=== PATIENT | female | born 1990 | race Caucasian/White ===

== ENCOUNTER 2017-06-30 20:20 | Inpatient (IN) | payer BC ==
[~2017-06-30] VITALS: Ht 165.1 cm; Wt 87.7 kg
[~2017-06-30 20:20] MED LIST: BCPILLS PO
--- NOTE | 2017-06-30 20:45 | EMERGENCY ROOM VISIT NOTE ---
History Report prepared by Timoteo: Ophelia Garcia Under the Supervision of: Dr. Javon Kyle M.D. First contact with patient: 20:35 Chief Complaint: VOMITING Stated Complaint: nausea and vomitting Nursing Triage Summary: Vomiting starting at 5pm tonight. History of Present Illness The patient is a 26 year old female who presents to the Emergency Room with complaints of sudden vomiting beginning 4 hours prior to arrival. The patient states that she was vomiting every 5-10 minutes. The patient also complains of shortness of breath and shakiness. She denies having chest pain, fevers, headaches, and diarrhea. She also reports that starting a month ago, her hands will randomly tense up and she will be unable to move them. The patient also states that she has had a recent loss of appetite and that she can go 4 days without eating. She reports that she fell today. The patient denies any recent trauma or chance of . Source of History: patient, family, spouse/significant other Onset: 4 hours prior to arrival Position: other (global) Quality: other (vomiting) Timing: other (sudden) Associated Symptoms: + SOB, No fevers, No headache, No chest pain, No diarrhea Review of Systems See HPI for pertinent positives & negatives. A total of 10 systems reviewed and were otherwise negative. Past Medical & Surgical Medical Problems: (1) No active medical problems Old medical records were attempted to be reviewed but there are no old records at this hospital. Nurse's notes were reviewed and I agree with. Denies any significant past medical history. Family History No pertinent family history stated. Social History Smoking Status: Never Smoker Alcohol Use: occasionally Drug Use: none Occupation Status: [employer] student Current/Historical Medications No Active Prescriptions or Reported Meds Allergies Coded Allergies: Penicillins (Verified Allergy, Unknown, unknown, 07/23/15) Physical Exam Vital Signs Date Time Temp Pulse Resp B/P (MAP) Pulse Ox O2 Delivery O2 Flow Rate FiO2 06/30/17 22:03 113 18 142/94 98 Room Air 06/30/17 20:30 100 06/30/17 20:24 36.9 113 30 135/92 99 Room Air Physical Exam General: Well developed well nourished young female mildly ill appearing and mildly shaky with no respiratory distress, breathing comfortably on room air. Normal speech HEENT: Normal cephalic atraumatic. Pupils are equal round and reactive to light. Extraocular movements are intact. Oropharynx is pink with moist mucous membranes. No swelling of the mouth lips or tongue. Neck: Supple with a midline trachea. No meningeal signs or stiffness, no JVD or bruits. No Stridor. Chest: Clear to auscultation bilaterally. No wheezes or rhonchi. No increased work of breathing. Heart: regular rate and rhythm. Abdomen: Soft nontender, nondistended without rebound guarding or rigidity. Extremities: No cyanosis clubbing or edema. No calf tenderness or assymetry. Contractors of hands bilaterally. Spine/Back. Non tender to palpation. No CVA tenderness Skin: Good turgor without rashes. Neurologic exam: Cranial nerves two through 12 are intact. Motor and sensation are intact and symmetrical throughout. Medical Decision & Procedures ER Provider Diagnostic Interpretation: X-ray results as stated below per interpretation by me and the radiologist: CHEST ONE VIEW PORTABLE CLINICAL HISTORY: 26 years-old Female presenting with CHEST PAIN. TECHNIQUE: Portable upright AP view of the chest was obtained. COMPARISON: None. FINDINGS: Cardiomediastinal silhouette normal. Lungs and pleural spaces clear. Osseous structures normal. Upper abdomen normal. IMPRESSION: 1. No acute cardiopulmonary disease. Electronically signed by: Benjamin Cleaning M.D. 06/30/2017 10:08 PM Dictated Date/Time: 06/30/2017 10:07 PM Laboratory Results 06/30/17 21:00 Red Blood Count 4.61, Mean Corpuscular Volume 86.6, Mean Corpuscular Hemoglobin 32.3, Mean Corpuscular Hemoglobin Concent 37.3, Mean Platelet Volume 8.6, Neutrophils (%) (Auto) 88.7, Lymphocytes (%) (Auto) 7.3, Monocytes (%) (Auto) 3.4, Eosinophils (%) (Auto) 0.1, Basophils (%) (Auto) 0.2, Neutrophils # (Auto) 15.71, Lymphocytes # (Auto) 1.30, Monocytes # (Auto) 0.60, Eosinophils # (Auto) 0.02, Basophils # (Auto) 0.03 06/30/17 21:00 Test 06/30/17 21:00 06/30/17 22:30 White Blood Count 17.72 K/uL (4.8-10.8) Red Blood Count 4.61 M/uL (4.2-5.4) Hemoglobin 14.9 g/dL (12.0-16.0) Hematocrit 39.9 % (37-47) Mean Corpuscular Volume 86.6 fL (80-100) Mean Corpuscular Hemoglobin 32.3 pg (25-34) Mean Corpuscular Hemoglobin Concent 37.3 g/dl (32-36) Platelet Count 240 K/uL (130-400) Mean Platelet Volume 8.6 fL (7.4-10.4) Neutrophils (%) (Auto) 88.7 % Lymphocytes (%) (Auto) 7.3 % Monocytes (%) (Auto) 3.4 % Eosinophils (%) (Auto) 0.1 % Basophils (%) (Auto) 0.2 % Neutrophils # (Auto) 15.71 K/uL (1.4-6.5) Lymphocytes # (Auto) 1.30 K/uL (1.2-3.4) Monocytes # (Auto) 0.60 K/uL (0.11-0.59) Eosinophils # (Auto) 0.02 K/uL (0-0.5) Basophils # (Auto) 0.03 K/uL (0-0.2) RDW Standard Deviation 41.7 fL (36.4-46.3) RDW Coefficient of Variation 13.3 % (11.5-14.5) Immature Granulocyte % (Auto) 0.3 % Immature Granulocyte # (Auto) 0.06 K/uL (0.00-0.02) Anion Gap 10.0 mmol/L (3-11) Est Creatinine Clear Calc Drug Dose 129.7 ml/min Estimated GFR () 134.9 Estimated GFR (Non- 116.4 BUN/Creatinine Ratio 7.2 (10-20) Calcium Level 8.4 mg/dl (8.5-10.1) Magnesium Level 0.9 mg/dl (1.8-2.4) Total Bilirubin 0.9 mg/dl (0.2-1) Direct Bilirubin 0.2 mg/dl (0-0.2) Aspartate Amino Transf (AST/SGOT) 36 U/L (15-37) Alanine Aminotransferase (ALT/SGPT) 34 U/L (12-78) Alkaline Phosphatase 129 U/L (45-117) Total Protein 7.7 gm/dl (6.4-8.2) Albumin 4.0 gm/dl (3.4-5.0) Lipase 59 U/L (73-393) Human Chorionic Gonadotropin, Qual NEG (NEG) Laboratory studies as stated above per my review. Medications Administered Medications (Trade) Dose Ordered Sig/Dalton Route Start Time Stop Time Status Last Admin Dose Admin Sodium Chloride 1,000 ml @ 999 mls/hr Q1H1M STAT IV 06/30/17 20:47 06/30/17 21:47 DC 06/30/17 21:05 999 MLS/HR Sodium Chloride 1,000 ml @ 200 mls/hr Q5H ONCE IV 06/30/17 20:47 07/01/17 01:46 06/30/17 21:05 200 MLS/HR Ondansetron HCl (Zofran Inj) 4 mg NOW STAT IV 06/30/17 20:47 06/30/17 20:48 DC 06/30/17 21:05 4 MG Lorazepam (Ativan Inj) 1 mg NOW STAT IV 06/30/17 21:18 06/30/17 21:19 DC 06/30/17 21:25 1 MG Magnesium Sulfate (Magnesium Sulfate) 2 gm NOW STAT IV 06/30/17 21:48 06/30/17 21:49 DC 06/30/17 22:02 2 GM ECG Indication: vomiting Rate (beats per minute): 114 Rhythm: sinus tachycardia Findings: nonspecific-ST abn, no acute ischemic change, no ectopy ED Course 2034: Past medical records reviewed. The patient was evaluated in room B5, and a complete history and physical examination were performed. 2046: Ordered Zofran Inj 4 mg IV, Sodium Chloride 1,000 ml @ 200 mls/hr IV, Sodium Chloride 1,000 ml @ 999 mls/hr IV. 2117: Ordered Ativan Inj 1 mg IV. 2125: I went to check on the patient and she was hyperventilating and her hands were clamped. We had her rebreathe her oxygen, we gave her a mg of Ativan, and had her slow her breathing. The patient is starting to feel better. 2138: The patient is doing better and her parents arrived. Her boyfriend states that she drinks a lot. 2147: Ordered Magnesium Sulfate 2 gm IV. 2201: Discussed the patient's case with Dr. Penny. The patient will be evaluated for further management. 2209: Upon reevaluation, the patient is resting. I discussed the results and treatment plan with the patient. She verbalized agreement of the treatment plan. The patient will be evaluated for further management. Medical Decision Differentials include, but are not limited to; dehydration, electrolyte metabolic abnormality, infection, and arrhythmia. This patient comes in as described above. She was brought in by ambulance after having multiple episodes of vomiting. She then was hyperventilating clenched her hands down bilaterally. She had no loss of consciousness. There was no trauma. She was feeling better upon arrival but still felt tight in her hands but she looks well. IV access was established. IV fluids were ordered and blood work was ordered. She seems somewhat anxious still. When I rechecked her she became much more anxious and was hyperventilating and she became very tachycardic. We gave her 1 mg of Ativan IV and had her rebreathe her CO2 and with this her heart rate came down and she felt much better. Her electrolytes came back significant abnormal with a low magnesium of 0.9. Her EKG does not show significantly prolonged QT and has no ischemic changes. Chest x-ray is unremarkable and does not show any acute findings. Her potassium is also mildly low. Her white count is elevated at 17 however she has no abdominal tenderness and I think this is most likely a stress reaction. I talked to the patient and her boyfriend at length she apparently does drink fairly heavily and there is also concern for alcohol withdrawal potential. Given her hypomagnesemia, I do think she needs to be admitted. She denies any self-induced vomiting. I have consulted Dr. Talavera and they saw the patient in the ER and she will be admitted for IV hydration and monitoring and treatment of her electrolyte abnormalities. Medication Reconcilliation Current Medication List: was personally reviewed by me Blood Pressure Screening Patient's blood pressure: Normal blood pressure Consults Time Called: 2149 Consulting Physician: Dr. Penny-[facility] Returned Call: 2201 Discussed the patient's case. The patient will be evaluated for further management. Impression Primary Impression: Vomiting Additional Impressions: Dehydration Hypomagnesemia Hyperventilation Scribe Attestation The scribe's documentation has been prepared under my direction and personally reviewed by me in its entirety. I confirm that the note above accurately reflects all work, treatment, procedures, and medical decision making performed by me. Departure Information Dispostion Being Evaluated By Hospitalist Prescriptions No Active Prescriptions or Reported Meds Referrals No Doctor, Assigned (PCP) Patient Instructions My [facility] Problem Qualifiers
[2017-06-30] MEDS ORDERED: ONDANSETRON INJ 2 MG/ML 2 ML VIAL IV STA (20:47)
[2017-06-30] MEDS ORDERED: SODIUM CHLORIDE 0.9% 1000ML 1,000 ML IV STA ×2 (20:47→22:56)
[2017-06-30] MEDS ORDERED: SODIUM CHLORIDE 0.9% 1000ML 1,000 ML IV ONE (20:47)
[2017-06-30 21:13] LABS: BASO % 0.2 %; BASO ABS # 0.03 K/uL (0-0.2); COMPLETE YES; EOS % 0.1 %; HEMATOCRIT 39.9 % (37-47); IG% 0.3 %; LYMPH % 7.3 %; MEAN CELL VOLUME 86.6 fL (80-100); MEAN CORPUSCULAR HEMOGLOBIN 32.3 pg (25-34); MEAN CORPUSCULAR HGB CONC 37.3 g/dl (32-36); MEAN PLATELET VOLUME 8.6 fL (7.4-10.4); MONO % 3.4 %; NEUT % 88.7 %; PLATELET COUNT 240 K/uL (130-400); RED BLOOD COUNT 4.61 M/uL (4.2-5.4); WHITE BLOOD COUNT 17.72 K/uL (4.8-10.8)
[2017-06-30] MEDS ORDERED: LORAZEPAM 2 MG/ML 1 ML VIAL IV STA (21:18)
[2017-06-30] MEDS ORDERED: LORAZEPAM 2 MG/ML 1 ML VIAL ONE (21:19)
[2017-06-30 21:26] LABS: BUN/CREATININE RATIO 7.2 (10-20); CALCIUM 8.4 mg/dl (8.5-10.1); CREATININE 0.72 mg/dl (0.60-1.20); POTASSIUM 3.1 mmol/L (3.5-5.1)
[2017-06-30 21:29] LABS: PREG INTERNAL NEGATIVE QC NEG CLEAR BACKGROUND; PREG INTERNAL POSITIVE QC POS CONTROL LINE
[2017-06-30] MEDS ORDERED: MAGNESIUM SULFATE 1GM / D5W 1 GM BAG IV STA (21:48)
--- NOTE | 2017-06-30 22:00 | History and Physical ---
History & Physical Date & Time of Service: Jun 30, 2017 at 22:00 Chief Complaint: nausea and vomitting Primary Care Physician: No Doctor, Assigned History of Present Illness Source: patient Miss Rand is a 26 year old female who presented to the ER with hypertonia, abdominal pain, nausea and vomiting. Her symptoms started severely around 5pm starting with abdominal cramping, then quickly progressed to vomiting. She went to [facility] ER and she was advised to go to [facility]. Her boyfriend was driving her when on the way she suddenly had all over body numbness and feeling like her whole body was numb. She found her throat was getting tight and it was very hard to talk. She was rolling around on the floor in a cramped position for around 45 minutes due to the abdominal pain and pain in her arms from cramping and tightening up of her muscles. She has had approximately similar episodes in the last month but none as severe as this one. She does not have a PCP and has not sought medical attention for these episodes. She is a heavy alcohol drinking and currently drinks every day around 12 shots of vodka in mixed drinks in the evening to help her fall asleep. She has used alcohol as a sleep aid for approximately 5 years but has only been a heavy alcohol drinker in the last year. She has tried AA meetings previously but recently started a second job and the hours clash she she has stopped going. She has been in contact with the drug and alcohol helpline. She has an appointment set up for outpatient meeting at [place] [facility] next . She is off on vacation to [place] until then with her boyfriend. Her boyfriend also drinks alcohol but she doesn't think to excess. She tells me he is supportive of her trying to give up alcohol but they have not thought of doing an alcohol free house and her goal is to cut back currently rather than give up. She tried to give up cold turkey 6 week previously and went through withdrawals with tremors, agitation and difficulty sleeping. She went back to alcohol due to stress from her work (she quit her most stressful job last week). With the heavy alcohol drinking she has had a complete lack of appetite for the last month and has not eaten anything for the last week. It is not unusual for her to go 4 days without eating. When she does eat she does not binge. She denies having chest pain, fevers, headaches, and diarrhea. 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 Past Medical/Surgical History Alcohol use disorder Malnutrition Family History Noncontributory Social History Smoking Status: Never Smoker Smokeless Tobacco Use: No Alcohol Use: heavy (see HPI) Drug Use: none Marital Status: in relationship Housing status: lives alone (moving in with her mother soon) Occupational Status: employed Immunizations History of Influenza Vaccine: Unknown History of Tetanus Vaccine?: Yes History of Pneumococcal: No History of Hepatitis B Vaccine: Yes Multi-Drug Resistant Organisms History of MDRO: No Allergies Coded Allergies: Penicillins (Verified Allergy, Unknown, unknown, 07/23/15) Home Medications No Active Prescriptions or Reported Meds Review of Systems Constitutional: + chills, No fever Eyes: No worsening of vision ENT: No hearing loss Respiratory: No cough, No sputum, No wheezing, No shortness of breath, No dyspnea on exertion, No dyspnea at rest, No hemoptysis Cardiovascular: No chest pain Abdomen: + pain, + nausea, + vomiting, No diarrhea, No constipation, No GI bleeding Musculoskeletal: + joint pain, + muscle pain (see HPI) Genitourinary - Female: No dysuria, No urinary frequency, No urinary urgency, No urinary incontinence, No urinary retention Neurologic: + weakness, + numbness/tingling (bilateral lateral thighs, bilateral anterior shins, distally normal), No memory loss, No paralysis Psychiatric: + depression symptoms, + anxiety, + insomnia, + substance abuse ( alcohol) Hematologic / Lymphatic: No abnormal bleeding/bruising Integumentary: No rash, No itch Physical Exam Vital Signs Date Time Temp Pulse Resp B/P (MAP) Pulse Ox O2 Delivery O2 Flow Rate FiO2 06/30/17 20:30 100 06/30/17 20:24 36.9 113 30 135/92 99 Room Air General Appearance: WD/WN, + mild distress (hands cramping intermittently, appears mildly anxious) Eyes: normal inspection, PERRL, EOMI, sclerae normal, funduscopic exam normal Neck: supple, no adenopathy, no JVD, trachea midline Respiratory/Chest: chest non-tender, lungs clear, normal breath sounds, no respiratory distress, no accessory muscle use Cardiovascular: regular rate, rhythm, no edema Abdomen/GI: normal bowel sounds, soft, + tenderness (very mild left lower quadrant tenderness on deep palpation, no rebound or guarding) Back: no CVA tenderness Extremities/Musculoskelatal: no calf tenderness, normal capillary refill, no pedal edema Neurologic/Psych: spike driver II-XII nml as tested (no facial droop), alert, oriented x 3, + motor weakness ( carpopedal spasm resolving), + sensory deficit (outer thighs bilaterally) Skin: normal color, warm/dry, no rash Diagnostics Laboratory Results Results Past 24 Hours Test 06/30/17 21:00 Range/Units White Blood Count 17.72 4.8-10.8 K/uL Red Blood Count 4.61 4.2-5.4 M/uL Hemoglobin 14.9 12.0-16.0 g/dL Hematocrit 39.9 37-47 % Mean Corpuscular Volume 86.6 80-100 fL Mean Corpuscular Hemoglobin 32.3 25-34 pg Mean Corpuscular Hemoglobin Concent 37.3 32-36 g/dl Platelet Count 240 130-400 K/uL Mean Platelet Volume 8.6 7.4-10.4 fL Neutrophils (%) (Auto) 88.7 % Lymphocytes (%) (Auto) 7.3 % Monocytes (%) (Auto) 3.4 % Eosinophils (%) (Auto) 0.1 % Basophils (%) (Auto) 0.2 % Neutrophils # (Auto) 15.71 1.4-6.5 K/uL Lymphocytes # (Auto) 1.30 1.2-3.4 K/uL Monocytes # (Auto) 0.60 0.11-0.59 K/uL Eosinophils # (Auto) 0.02 0-0.5 K/uL Basophils # (Auto) 0.03 0-0.2 K/uL RDW Standard Deviation 41.7 36.4-46.3 fL RDW Coefficient of Variation 13.3 11.5-14.5 % Immature Granulocyte % (Auto) 0.3 % Immature Granulocyte # (Auto) 0.06 0.00-0.02 K/uL Sodium Level 140 136-145 mmol/L Potassium Level 3.1 3.5-5.1 mmol/L Chloride Level 102 98-107 mmol/L Carbon Dioxide Level 28 21-32 mmol/L Anion Gap 10.0 3-11 mmol/L Blood Urea Nitrogen 5 7-18 mg/dl Creatinine 0.72 0.60-1.20 mg/dl Est Creatinine Clear Calc Drug Dose 129.7 ml/min Estimated GFR () 134.9 Estimated GFR (Non- 116.4 BUN/Creatinine Ratio 7.2 10-20 Random Glucose 82 70-99 mg/dl Calcium Level 8.4 8.5-10.1 mg/dl Magnesium Level 0.9 1.8-2.4 mg/dl Total Bilirubin 0.9 0.2-1 mg/dl Direct Bilirubin 0.2 0-0.2 mg/dl Aspartate Amino Transf (AST/SGOT) 36 15-37 U/L Alanine Aminotransferase (ALT/SGPT) 34 12-78 U/L Alkaline Phosphatase 129 45-117 U/L Total Protein 7.7 6.4-8.2 gm/dl Albumin 4.0 3.4-5.0 gm/dl Lipase 59 73-393 U/L Human Chorionic Gonadotropin, Qual NEG NEG Diagnostic Radiology CHEST ONE VIEW PORTABLE CLINICAL HISTORY: 26 years-old Female presenting with CHEST PAIN. TECHNIQUE: Portable upright AP view of the chest was obtained. COMPARISON: None. FINDINGS: Cardiomediastinal silhouette normal. Lungs and pleural spaces clear. Osseous structures normal. Upper abdomen normal. IMPRESSION: 1. No acute cardiopulmonary disease. Electronically signed by: Benjamin Cleaning M.D. 06/30/2017 10:08 PM Dictated Date/Time: 06/30/2017 10:07 PM EKG Sinus tachycardia, ventricular rate: 114 bpm No previous ECGs available Impression Assessment and Plan 26 year old female with alcohol use disorder presents with abdominal pain, nausea, vomiting, hypomagnesemia and hypertonia Hypomagnesemia - replace in the ER with 2g Mg Sulphate - check level after replacement Hypokalemia - secondary to poor oral intake and vomiting loss - KCl 10 meq IV now - trend Abdominal pain, nausea, vomiting - unclear etiology -> IBS vs. constipation vs. chronic pancreatitis (from alcohol use) vs. alcohol withdrawal - normal bowel movements therefore I am not concerned about SBO. - Rx hypomagnesemia and alcohol withdrawal as below and reassess Numbness on front of her calves and side of thighs - no back pain. not in one nerve distribution - CK added to assess for rhabdomyolysis - B12 level added Tetany - resolving with magnesium - Chvostek's sign not apparent, Carpopedal spasm previously described but she is getting better ROM now after 1 g Mg Sulphate - She also described having broncho and laryngospasm which are also no longer apparent and she has no stridor or wheezing - Muscle twitching in her hands is still apparent - no papilledema seen on funduscopy - no NJ or QT prolongation on EKG - she will be placed on telemetry to monitor - calcium mildly low - plan to trend. Vit D added to labs - add phosphorus level - likely secondary to hypomagnesemia, replaced in ER with 2g Mg Sulphate IV -> will repeat Mg after this finishes. She is already feeling better after the 1st gram. Alcohol use disorder - In touch with [facility] - she plans to go there on as an outpatient next . - Discharge planning to give extra resources to the patient - needs to establish with a PCP on discharge - given she has two jobs she is likely to find it difficult to quit until she sees it as a priority - multivitamin, thiamine 250mg IV 3 days, banana bag now after thiamine level - B12 and folate Alcohol withdrawal - currently having some tremors - AWSS scores - alcohol level negative suggesting she well go through withdrawal soon - treat with gabapentin protocol and lorazepam PRN Anxiety and depression - not formally diagnosed but having issues sleeping and she generally feels she is anxious - consult psych VTE Prophylaxis - SCDs + TEDs - likely short stay, young and mobile therefore will hold off chemical anticoagulation Code - Full Disposition - admit to telemetry to monitor for arrhythmias given hypomagnesemia. can be stepped down once magnesium replete Attending Addendum: I have physically seen and examined this patient, have supervised the medical residents activities, and agree with the H&P as noted above with the following exceptions as noted. The patient denies chest pain, palpitations, shortness of breath, cough, lower extremity swelling, sore throat, fevers, chills, sweats, weight change, fatigue , diarrhea or constipation, blood in urine or stool, dysuria, urinary frequency or urgency, lightheadedness, dizziness, headache, memory loss, rash, abnormal bruising or bleeding, imbalance, focal or generalized weakness, numbness or tingling in arms or legs, generalized arthralgias or myalgias, back or neck pain, night sweats, or allergy symptoms. The review of systems is otherwise negative other than for that already noted above, and at least 10 systems have been reviewed. The patient is awake, well-developed and adequately nourished, alert and oriented 3, normocephalic and atraumatic, is mildly anxious, lying in bed and in no acute distress. HEENT--PERRL, EOMI, mucous membranes and oropharynx dry. Neck--supple, no JVD or bruits, thyroid normal, trachea midline, no adenopathy. Heart--normal S1 and S2, no extra beats, no murmurs, rubs or gallops. Lungs--clear bilaterally with good air movement, no respiratory distress, no accessory muscle use. Abdomen--normal bowel sounds and soft, nontender and nondistended, no hernias or masses, no organomegaly. Extremities--no cyanosis, clubbing or edema. There are good distal pulses b/l. Dermatologic--normal skin turgor, normal color, warm and dry, no abnormal lymph nodes, no rash. Neurologic--cranial nerves II through XII grossly intact, motor and sensory examination normal. There are no significant deficits noted. Rheumatologic--normal range of motion, nontender, muscles and joints. Psychiatric--anxious Assessment and Plan: 1. Electrolyte disturbances--magnesium 0.9, potassium 3.1. We'll replaced both IV and orally, following serial laboratory. Follow on telemetry to monitor for arrhythmias. 2. Alcohol abuse/withdrawal--start protocol with AWSS scores. Start with gabapentin protocol and lorazepam when necessary. Give banana bag daily. B12, folate, thiamine supplementation. Muscle spasms should improve with replacement of magnesium and potassium. Will be going to [facility] as an outpatient next week. Level of Care Telemetry Advanced Directives Existing Advance Directive: No Existing Living Will: No Existing Power of Equipment Manager: No Resuscitation Status FULL RESUSCITATION VTE Prophylaxis VTE Risk Assessment Done? Y/N: Yes Risk Level: Low Given or contraindicated: T.E.D. Stockings, SCD's, Treatment not indicated Social Service Consult None Apply Resident Tracking Resident Involvement: Resident Care Provided Care Provided: Adult [facility]
[2017-06-30] MEDS ORDERED: POTASSIUM CHLR 10 MEQ / WTR 10 MEQ in PREMIXED WATER 100 ML IV STA (22:08)
--- NOTE | 2017-06-30 22:09 | DIAGNOSTIC IMAGING REPORT ---
CHEST ONE VIEW PORTABLE CLINICAL HISTORY: 26 years-old Female presenting with CHEST PAIN. TECHNIQUE: Portable upright AP view of the chest was obtained. COMPARISON: None. FINDINGS: Cardiomediastinal silhouette normal. Lungs and pleural spaces clear. Osseous structures normal. Upper abdomen normal. IMPRESSION: 1. No acute cardiopulmonary disease. Electronically signed by: Benjamin Cleaning M.D. 06/30/2017 10:08 PM Dictated Date/Time: 06/30/2017 10:07 PM
[2017-06-30] MEDS ORDERED: ONDANSETRON INJ 2 MG/ML 2 ML VIAL IV PRN (23:00)
[2017-06-30] MEDS ORDERED: ACETAMINOPHEN 325 MG TAB PO PRN (23:00)
[2017-06-30 23:19] LABS: PHOSPHORUS 1.6 mg/dl (2.5-4.9)
[2017-06-30] MEDS ORDERED: MULTI-VITAMIN INFUSION INJ 10 ML, THIAMINE HCL INJ 100 MG, FoLIC ACID INJ 1 MG in SODIU... IV ONE (23:45)
[2017-07-01] VITALS (7 sets, daily range): BP systolic 123–137; BP diastolic 78–96; PULSE 90–124; TEMP 36.6–37.3; O2SAT 97–99; Ht 165.1 cm; Wt 87.7 kg
[2017-07-01] MEDS ORDERED: LORAZEPAM 1 MG TAB PO PRN
[2017-07-01] MEDS ORDERED: POT PHOSPHATE MONOBASIC W/ SOD TAB PO STA (00:01)
[2017-07-01] MEDS ORDERED: GABAPENTIN 600 MG TAB PO STA (00:51)
[2017-07-01] MEDS ORDERED: SODIUM CHLORIDE 0.9% 1000ML 1,000 ML IV SCH (01:00)
[2017-07-01] MEDS: RANITIDINE IV 50 MG in DEXTROSE 5% 100ML 100 ML IV SCH ×3 (01:24→17:11)
[2017-07-01 02:26] LABS: BENZODIAZEPINE, URINE NEG (NEG); COCAINE,URINE NEG (NEG); PHENCYCLIDINE, URINE NEG (NEG)
[2017-07-01 05:36] LABS: URINE APPEARANCE CLEAR (CLEAR); URINE BILIRUBIN NEG (NEG); URINE COLOR ORANGE; URINE EPITHELIAL CELL AUTO 20-30 /lpf (0-5); URINE NITRITE NEG (NEG); URINE SPECIFIC GRAVITY 1.013 (1.000-1.030); UROBILINOGEN NEG (NEG); ZZUR CULT IF INDIC CLEAN CATCH NO
[2017-07-01 05:42] LABS: MANUAL MICROSCOPIC REQUIRED? NO; REVIEW REQ? NO
[2017-07-01] MEDS: GABAPENTIN 600MG Q6H DOSE PO SCH ×2 (05:58→13:57)
[2017-07-01 06:25] LABS: BASO % 0.2 %; BASO ABS # 0.02 K/uL (0-0.2); COMPLETE YES; EOS % 0.4 %; HEMATOCRIT 33.4 % (37-47); IG% 0.2 %; LYMPH % 21.1 %; LYMPH ABS # 2.14 K/uL (1.2-3.4); MEAN CELL VOLUME 89.3 fL (80-100); MEAN CORPUSCULAR HEMOGLOBIN 32.4 pg (25-34); MEAN CORPUSCULAR HGB CONC 36.2 g/dl (32-36); MEAN PLATELET VOLUME 8.4 fL (7.4-10.4); MONO % 4.2 %; NEUT % 73.9 %; PLATELET COUNT 174 K/uL (130-400); RED BLOOD COUNT 3.74 M/uL (4.2-5.4); WHITE BLOOD COUNT 10.14 K/uL (4.8-10.8)
[2017-07-01 06:52] LABS: INR 1.1 (0.9-1.1); PARTIAL THROMBOPLASTIN RATIO 1.3
[2017-07-01 07:10] LABS: ALKALINE PHOSPHATASE 105 U/L (45-117); ALT/SGPT 24 U/L (12-78); AST/SGOT 25 U/L (15-37); BLOOD UREA NITROGEN 2 mg/dl (7-18); BUN/CREATININE RATIO 4.3 (10-20); CARBON DIOXIDE 24 mmol/L (21-32); CHLORIDE 109 mmol/L (98-107); CREATININE 0.56 mg/dl (0.60-1.20); GLUCOSE 87 mg/dl (70-99); POTASSIUM 3.1 mmol/L (3.5-5.1); SODIUM 141 mmol/L (136-145)
[2017-07-01 07:36] LABS: CALCIUM 6.6 mg/dl (8.5-10.1)
[2017-07-01] MEDS: CEROVITE ADV FORMULA TAB PO SCH (07:37)
[2017-07-01] MEDS: THIAMINE HCL INJ 250 MG in SODIUM CHLORIDE 0.9% 50ML 50 ML IV SCH (07:46)
[2017-07-01 08:07] LABS: MAGNESIUM 1.7 mg/dl (1.8-2.4); PHOSPHORUS 1.8 mg/dl (2.5-4.9)
[2017-07-01] MEDS ORDERED: POT PHOSPHATE MONOBASIC W/ SOD TAB PO SCH (09:00)
[2017-07-01] MEDS: POTASSIUM CHLORIDE INJ 40 MEQ in SODIUM CHLORIDE 0.9% 1000ML 1,000 ML IV SCH ×2 (09:00→23:11)
[2017-07-01] MEDS: MAGNESIUM OXIDE 400 MG TAB PO SCH (09:12)
[2017-07-01] MEDS ORDERED: CALCIUM GLUCONATE 10% 1,000 MG in SODIUM CHLORIDE 0.9% 50ML 50 ML IV ONE (09:45)
[2017-07-01] MEDS: MAGNESIUM SULFATE 1GM / D5W 1 GM in PREMIXED IN D5W 100 ML IV SCH ×2 (10:00→11:00)
--- NOTE | 2017-07-01 10:55 | Family Medicine Progress Note ---
Progress Note Date of Service Jul 01, 2017. Subjective Pt evaluation today including: conversation w/ patient, physical exam, chart review, lab review, review of studies, review of inpatient medication list Pain: denies PO Intake: clear liq diet Voiding: no voiding problems Overnight no acute events, patient reports some numbness in LE karyn, Shaking has resolves as well as spasms in her hands. She denies abdominal pain, Nausea/ vomiting, SOB, CP Constitutional: No fever, No chills, No weakness Respiratory: No cough, No sputum, No shortness of breath Cardiovascular: No chest pain, No edema, No palpitations Abdomen: No pain, No nausea, No vomiting Female : No dysuria, No urinary frequency, No hematuria Skin: No rash, No itch Medications Current Inpatient Medications Medications (Trade) Dose Ordered Sig/Dalton Route Start Time Stop Time Status Last Admin Dose Admin Acetaminophen (Tylenol Tab) 650 mg Q4H PRN PO 06/30/17 23:00 07/30/17 22:59 Ondansetron HCl (Zofran Inj) 4 mg Q6H PRN IV 06/30/17 23:00 07/30/17 22:59 Ranitidine HCl 50 mg/Dextrose 102 ml @ 200 mls/hr Q8H IV 07/01/17 01:00 07/31/17 00:59 07/01/17 17:11 200 MLS/HR Thiamine HCl 250 mg/Sodium Chloride 52.5 ml @ 208 mls/hr QAM IV 07/01/17 09:00 07/04/17 08:59 07/01/17 07:46 208 MLS/HR Multivitamins/ Minerals (Multivitamin W/ Minerals Tab) 1 tab QAM PO 07/01/17 09:00 07/31/17 08:59 07/01/17 07:37 1 TAB Lorazepam (Ativan Tab) 1 mg ONE PRN PO 07/01/17 00:00 Diphenhydramine HCl (Benadryl Cap) 25 mg HS PRN PO 07/01/17 01:00 07/31/17 00:59 07/01/17 01:38 25 MG Gabapentin (Neurontin Tab) 600 mg Q8H PO 07/01/17 20:00 07/02/17 12:01 Gabapentin (Neurontin Tab) 600 mg Q12H PO 07/03/17 00:00 07/03/17 12:01 Gabapentin (Neurontin Tab) 600 mg Q24H PO 07/04/17 12:00 07/04/17 12:01 Magnesium Oxide (Mag-Ox Tab) 400 mg QAM PO 07/01/17 09:00 07/31/17 08:59 07/01/17 09:12 400 MG Potassium Chloride 40 meq/ Sodium Chloride 1,020 ml @ 100 mls/hr [id number] IV 07/01/17 09:00 07/31/17 08:59 07/01/17 09:00 125 MLS/HR Folic Acid (Folvite Tab) 1 mg QAM PO 07/02/17 09:00 08/01/17 08:59 Cholecalciferol (Vitamin D Tab) 5,000 inter.unit QAM PO 07/02/17 09:00 08/01/17 08:59 Calcium Carbonate (Tums Chew Tab) 1,000 mg BID PO 07/01/17 21:00 07/31/17 20:59 Sodium Phosphate 21 mmol/Sodium Chloride 507 ml @ 88 mls/hr TODAY@1430 IV 07/01/17 14:30 07/01/17 21:00 07/01/17 14:09 88 MLS/HR Mirtazapine (Remeron Tab) 30 mg HS PO 07/01/17 21:00 07/31/17 20:59 Objective Vital Signs Date Time Temp Pulse Resp B/P (MAP) Pulse Ox O2 Delivery O2 Flow Rate FiO2 07/01/17 16:02 36.9 96 18 133/86 (102) 98 Room Air 07/01/17 15:36 Room Air 07/01/17 11:54 Room Air 07/01/17 11:51 36.6 96 18 134/96 (109) 98 Room Air 07/01/17 08:00 Room Air 07/01/17 07:19 37.3 101 18 134/78 (96) 97 Room Air 07/01/17 04:20 36.9 98 20 123/85 (98) 98 Room Air 07/01/17 04:00 Room Air 07/01/17 00:15 36.6 124 18 127/93 99 Room Air 06/30/17 23:31 119 22 142/94 96 06/30/17 22:03 113 18 142/94 98 Room Air 06/30/17 20:30 100 06/30/17 20:24 36.9 113 30 135/92 99 Room Air Physical Exam Notes: GENERAL: alert, well appearing, well nourished, no distress, non-toxic EYE EXAM: normal conjunctiva, PERRL and EOM's grossly intact OROPHARYNX: no exudate, no erythema, lips, buccal mucosa, and tongue normal and mucous membranes are moist NECK: supple, no nuchal rigidity, no adenopathy, non-tender LUNGS: Clear to auscultation. Normal chest wall mechanics HEART: no murmurs, S1 normal and S2 normal ABDOMEN: abdomen soft, non-tender, normo-active bowel sounds, no masses, no rebound or guarding. SKIN: no rashes and no bruising UPPER EXTREMITIES: upper extremities are grossly normal. LOWER EXTREMITIES: No pitting edema. NEURO EXAM: Normal sensorium, cranial nerves II-XII intact, normal speech, no weakness of arms, no weakness of legs. DTR intact, equal karyn Laboratory Results Results Past 24 Hours Test 06/30/17 21:00 06/30/17 22:30 07/01/17 01:05 07/01/17 01:50 Range/Units White Blood Count 17.72 4.8-10.8 K/uL Red Blood Count 4.61 4.2-5.4 M/uL Hemoglobin 14.9 12.0-16.0 g/dL Hematocrit 39.9 37-47 % Mean Corpuscular Volume 86.6 80-100 fL Mean Corpuscular Hemoglobin 32.3 25-34 pg Mean Corpuscular Hemoglobin Concent 37.3 32-36 g/dl Platelet Count 240 130-400 K/uL Mean Platelet Volume 8.6 7.4-10.4 fL Neutrophils (%) (Auto) 88.7 % Lymphocytes (%) (Auto) 7.3 % Monocytes (%) (Auto) 3.4 % Eosinophils (%) (Auto) 0.1 % Basophils (%) (Auto) 0.2 % Neutrophils # (Auto) 15.71 1.4-6.5 K/uL Lymphocytes # (Auto) 1.30 1.2-3.4 K/uL Monocytes # (Auto) 0.60 0.11-0.59 K/uL Eosinophils # (Auto) 0.02 0-0.5 K/uL Basophils # (Auto) 0.03 0-0.2 K/uL RDW Standard Deviation 41.7 36.4-46.3 fL RDW Coefficient of Variation 13.3 11.5-14.5 % Immature Granulocyte % (Auto) 0.3 % Immature Granulocyte # (Auto) 0.06 0.00-0.02 K/uL Sodium Level 140 136-145 mmol/L Potassium Level 3.1 3.5-5.1 mmol/L Chloride Level 102 98-107 mmol/L Carbon Dioxide Level 28 21-32 mmol/L Anion Gap 10.0 3-11 mmol/L Blood Urea Nitrogen 5 7-18 mg/dl Creatinine 0.72 0.60-1.20 mg/dl Est Creatinine Clear Calc Drug Dose 129.7 ml/min Estimated GFR () 134.9 Estimated GFR (Non- 116.4 BUN/Creatinine Ratio 7.2 10-20 Random Glucose 82 70-99 mg/dl Calcium Level 8.4 8.5-10.1 mg/dl Phosphorus Level 1.6 2.5-4.9 mg/dl Magnesium Level 0.9 1.9 1.8-2.4 mg/dl Total Bilirubin 0.9 0.2-1 mg/dl Direct Bilirubin 0.2 0-0.2 mg/dl Aspartate Amino Transf (AST/SGOT) 36 15-37 U/L Alanine Aminotransferase (ALT/SGPT) 34 12-78 U/L Alkaline Phosphatase 129 45-117 U/L Total Creatine Kinase 152 26-192 U/L Total Protein 7.7 6.4-8.2 gm/dl Albumin 4.0 3.4-5.0 gm/dl Lipase 59 73-393 U/L Human Chorionic Gonadotropin, Qual NEG NEG Ethyl Alcohol mg/dL < 3.0 0-3 mg/dl Vitamin B12 Level 589 211-911 pg/mL 25-Hydroxy Vitamin D Total 9.9 30-100 ng/ml Folate 1.49 >5.38 ng/mL Urine Color ORANGE Urine Appearance CLEAR CLEAR Urine pH 8.0 4.5-7.5 Urine Specific [place] 1.013 1.000-1.030 Urine Protein NEG NEG Urine Glucose (UA) NEG NEG Urine Ketones NEG NEG Urine Occult Blood NEG NEG Urine Nitrite NEG NEG Urine Bilirubin NEG NEG Urine Urobilinogen NEG NEG Urine Leukocyte Esterase NEG NEG Urine WBC (Auto) 1-5 0-5 /hpf Urine RBC (Auto) 0-4 0-4 /hpf Urine Hyaline Casts (Auto) 0 0-5 /lpf Urine Epithelial Cells (Auto) 20-30 0-5 /lpf Urine Bacteria (Auto) NEG NEG Urine Opiates Screen NEG NEG Urine Methadone, Qualitative NEG NEG Urine Barbiturates NEG NEG Urine Phencyclidine (PCP) Level NEG NEG Ur Amphetamine/Methamphetamine NEG NEG MDMA (Ecstasy) Screen NEG NEG Urine Benzodiazepines Screen NEG NEG Urine Cocaine Metabolite NEG NEG Urine Marijuana (THC) NEG NEG Test 07/01/17 05:54 07/01/17 08:52 07/01/17 09:53 07/01/17 13:47 Range/Units White Blood Count 10.14 4.8-10.8 K/uL Red Blood Count 3.74 4.2-5.4 M/uL Hemoglobin 12.1 12.0-16.0 g/dL Hematocrit 33.4 37-47 % Mean Corpuscular Volume 89.3 80-100 fL Mean Corpuscular Hemoglobin 32.4 25-34 pg Mean Corpuscular Hemoglobin Concent 36.2 32-36 g/dl Platelet Count 174 130-400 K/uL Mean Platelet Volume 8.4 7.4-10.4 fL Neutrophils (%) (Auto) 73.9 % Lymphocytes (%) (Auto) 21.1 % Monocytes (%) (Auto) 4.2 % Eosinophils (%) (Auto) 0.4 % Basophils (%) (Auto) 0.2 % Neutrophils # (Auto) 7.49 1.4-6.5 K/uL Lymphocytes # (Auto) 2.14 1.2-3.4 K/uL Monocytes # (Auto) 0.43 0.11-0.59 K/uL Eosinophils # (Auto) 0.04 0-0.5 K/uL Basophils # (Auto) 0.02 0-0.2 K/uL RDW Standard Deviation 43.3 36.4-46.3 fL RDW Coefficient of Variation 13.3 11.5-14.5 % Immature Granulocyte % (Auto) 0.2 % Immature Granulocyte # (Auto) 0.02 0.00-0.02 K/uL Prothrombin Time 12.0 9.0-12.0 SECONDS Prothromb Time International Ratio 1.1 0.9-1.1 Activated Partial Thromboplast Time 32.6 21.0-31.0 SECONDS Partial Thromboplastin Ratio 1.3 Sodium Level 141 136-145 mmol/L Potassium Level 3.1 3.5-5.1 mmol/L Chloride Level 109 98-107 mmol/L Carbon Dioxide Level 24 21-32 mmol/L Anion Gap 8.0 3-11 mmol/L Blood Urea Nitrogen 2 7-18 mg/dl Creatinine 0.56 0.60-1.20 mg/dl Est Creatinine Clear Calc Drug Dose 167.3 ml/min Estimated GFR () > 150.0 Estimated GFR (Non- 129.6 BUN/Creatinine Ratio 4.3 10-20 Random Glucose 87 70-99 mg/dl Calcium Level 6.6 8.5-10.1 mg/dl Phosphorus Level 1.8 2.5-4.9 mg/dl Magnesium Level 1.7 1.8-2.4 mg/dl Total Bilirubin 1.2 0.2-1 mg/dl Direct Bilirubin 0.3 0-0.2 mg/dl Aspartate Amino Transf (AST/SGOT) 25 15-37 U/L Alanine Aminotransferase (ALT/SGPT) 24 12-78 U/L Alkaline Phosphatase 105 45-117 U/L Total Protein 5.7 6.4-8.2 gm/dl Albumin 2.7 3.4-5.0 gm/dl Parathyroid Hormone (Intact) 104.4 11.1-79.5 pg/mL Ionized Calcium 0.88 1.12-1.32 mmol/l Prealbumin 21.3 20-40 mg/dl Test 07/01/17 16:40 Range/Units Assessment and Plan 26 yo F Hx alcohol abuse presented to ED for having severe muscle cramps and Nausea/Vomiting, abdominal pain noted to have severe electrolyte disturbance in ED Severe electrolyte disturbance, severe vitamin D and folate deficiency and muscle cramps and paresthesia in setting of alcohol abuse and poor dietary intake - ? refeeding syndrome - Replace electrolytes and monitor levels closely. - limit to low calorie intake until electrolytes corrected - continue Tele monitoring - check ferritin level - prealbumin level normal. Hypophosphatemia -Phos 1.8-->3.2 (resolved) after iV and oral replacement - recheck level in am Severe Hypocalcemia with tetany and paresthesia Severe vitamin d deficiency -Ca 7.3<--6.3 - recheck level still low. check ionized calcium level. may need repeat dose of IV calcium - continue oral replacement - replace vitamin D - normal B12 Hypomagnesemia -Mg 1.7-->1.9 - s/p 2g Mg Sulphate in ED - s/p 1g M sulfate today - check level after replacement Hypokalemia - secondary to dec''d PO intake/vomiting loss -K 3.1-->3.2 -Continue IV KCL 40 meq /NS - oral replacement as well. -F/u BMP Folic acid def - replace Abdominal pain, nausea, vomiting Poor oral intake over one month period - Clinically resolved - likely alcohol withdrawal, pancreatitis unlikely given unremarkable lipase, no evidence of constipation - Treat electrolyte abnormalities - r/o celiac ds - transglutaminase IgA. Consider GI eval if symptoms persists Alcohol use disorder - Plan for attending [facility] 07/05 - multivitamin, thiamine 250mg IV 3 days - B12 and folate Alcohol withdrawal - tremors resolved - [facility] gabapentin protocol, lorazepam PRN Anxiety and depression -Psychiatry consulted. Started on remeron. VTE Prophylaxis - SCDs + TEDs -no chemical anticoagulation indicated due to short stay Code - Full Continued [facility] stay due to: multiple IV medications needed Discharge planning: home Resident Tracking Resident Involvement: Resident Care Provided Care Provided: Adult Hospital Medicine Reviewed: Pt Seen/Exam by Me History denied any concerns. feeling hungry numbness/tingling resolved no muscle cramps anymore no abdominal pain, nausea Constitutional: denies: fever Respiratory: negative: short of breath Cardiovascular: denies chest pain Genitourinary: negative dysuria General Appearance: no apparent distress Respiratory: lungs clear, no respiratory distress Cardiovascular: regular rate, rhythm Gastrointestinal: normal bowel sounds, non tender, soft Neurologic/Psychiatric: alert, oriented x 3 Skin Characteristics: warm/dry Assessment/Plan Resident Physician Supervision Note: I was present with Dr. Medina in bedside. I verified the dexter history and physical, reviewed labs and image studies, discussed the case with the resident and agree with the findings and care plan.
[2017-07-01] MEDS ORDERED: ERGOCALCIFEROL 50,000 INTER.UNIT CAP PO ONE (13:00)
[2017-07-01] MEDS ORDERED: SODIUM PHOSPHATE 3 MMOL/1 ML INFUSION IV STA (13:10)
[2017-07-01] MEDS ORDERED: POT PHOSPHATE MONOBASIC W/ SOD TAB PO ONE (13:15)
[2017-07-01] MEDS ORDERED: CALCIUM CARBONATE 500 MG CHEWABLE PO ONE (13:45)
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
[2017-07-01] MEDS ORDERED: SODIUM PHOSPHATE INJ 21 MMOL in SODIUM CHLORIDE 0.9% 500ML 500 ML IV SCH (14:30)
[2017-07-01 17:32] LABS: BLOOD UREA NITROGEN 2 mg/dl (7-18); BUN/CREATININE RATIO 2.9 (10-20); CALCIUM 7.3 mg/dl (8.5-10.1); CARBON DIOXIDE 26 mmol/L (21-32); CHLORIDE 107 mmol/L (98-107); CREATININE 0.55 mg/dl (0.60-1.20); GLUCOSE 94 mg/dl (70-99); MAGNESIUM 1.9 mg/dl (1.8-2.4); POTASSIUM 3.2 mmol/L (3.5-5.1); SODIUM 142 mmol/L (136-145)
[2017-07-01 17:36] LABS: PHOSPHORUS 3.2 mg/dl (2.5-4.9)
[2017-07-01] MEDS ORDERED: NURSING VERBAL MED ORDER ONE (19:30)
[2017-07-01] MEDS ORDERED: POTASSIUM CHLORIDE 20 MEQ TABCR PO ONE (19:30)
[2017-07-01] MEDS: GABAPENTIN 600MG Q8H DOSE PO SCH (20:05)
[2017-07-01] MEDS: CALCIUM CARBONATE 500 MG CHEWABLE PO SCH (20:53)
[2017-07-01] MEDS ORDERED: MIRTAZAPINE TAB 15 MG TAB PO SCH (21:00)
[2017-07-02] VITALS (7 sets, daily range): BP systolic 108–144; BP diastolic 71–96; PULSE 71–86; TEMP 36.6–36.8; O2SAT 98–99
[2017-07-02] MEDS: RANITIDINE IV 50 MG in DEXTROSE 5% 100ML 100 ML IV SCH ×3 (01:10→17:25)
[2017-07-02] MEDS: GABAPENTIN 600MG Q8H DOSE PO SCH ×2 (04:18→12:38)
[2017-07-02] MEDS: POTASSIUM CHLORIDE INJ 40 MEQ in SODIUM CHLORIDE 0.9% 1000ML 1,000 ML IV SCH (06:03)
[2017-07-02 06:56] LABS: BASO % 0.5 %; BASO ABS # 0.03 K/uL (0-0.2); COMPLETE YES; EOS % 2.3 %; HEMATOCRIT 33.9 % (37-47); IG% 0.2 %; LYMPH % 37.7 %; LYMPH ABS # 2.42 K/uL (1.2-3.4); MEAN CELL VOLUME 89.2 fL (80-100); MEAN CORPUSCULAR HEMOGLOBIN 32.1 pg (25-34); MEAN PLATELET VOLUME 8.9 fL (7.4-10.4); NEUT % 54.3 %; PLATELET COUNT 166 K/uL (130-400); WHITE BLOOD COUNT 6.42 K/uL (4.8-10.8)
[2017-07-02 07:44] LABS: ALB/GLOB RATIO 0.9 (0.9-2); ALKALINE PHOSPHATASE 98 U/L (45-117); ALT/SGPT 24 U/L (12-78); BLOOD UREA NITROGEN 1 mg/dl (7-18); BUN/CREATININE RATIO 3.2 (10-20); CALCIUM 7.2 mg/dl (8.5-10.1); CARBON DIOXIDE 26 mmol/L (21-32); CHLORIDE 113 mmol/L (98-107); CREATININE 0.43 mg/dl (0.60-1.20); FERRITIN 134.6 ng/ml (8.0-388.0); GLUCOSE 81 mg/dl (70-99); PHOSPHORUS 2.3 mg/dl (2.5-4.9); SODIUM 144 mmol/L (136-145)
--- NOTE | 2017-07-02 08:43 | Medical Student: [facility] ---
Med Student Progress Note Date of Service Jul 02, 2017. Subjective Pt evaluation today including: conversation w/ patient, physical exam, lab review, review of studies Pain: denies PO Intake: Clear liquid diet Voiding: no voiding problems, no incontinence Patient states she is feeling much better today and voiced desire to return home. Note from psych liaison nurse states patient is willing to follow up with substance abuse counseling upon discharge Denies any pain, nausea, vomiting, tachycardia, palpitations, SOB, muscle cramps /spasms Review of Systems Constitutional: No fever Eyes: No problem reported ENT: No problem reported Respiratory: No cough, No shortness of breath Cardiac: No chest pain, No edema, No palpitations Abdomen: No pain, No nausea, No vomiting, No diarrhea Musculoskeletal: No muscle pain Neurologic: No weakness, No numbness/tingling Skin: No problem reported Objective Vital Signs Date Time Temp Pulse Resp B/P (MAP) Pulse Ox O2 Delivery O2 Flow Rate FiO2 07/02/17 07:32 36.7 71 16 108/71 (83) 99 Room Air 07/02/17 04:00 99 Room Air 07/02/17 03:45 36.6 75 16 123/84 (97) 98 Room Air 07/02/17 00:00 36.7 86 126/92 (103) 99 Room Air 07/02/17 00:00 99 Room Air 07/01/17 20:00 99 Room Air 07/01/17 19:56 36.9 90 22 137/96 (110) 99 Room Air 07/01/17 16:02 36.9 96 18 133/86 (102) 98 Room Air 07/01/17 15:36 Room Air 07/01/17 11:54 Room Air 07/01/17 11:51 36.6 96 18 134/96 (109) 98 Room Air Physical Exam General Appearance: WD/WN, no apparent distress Eyes: bilateral eyes normal inspection, bilateral eyes PERRL, bilateral eyes EOMI ENT: hearing grossly normal, pharynx normal Neck: supple, no adenopathy, thyroid normal, no JVD, no carotid bruits, trachea midline Respiratory/Chest: chest non-tender, lungs clear, normal breath sounds, no respiratory distress, no accessory muscle use Cardiovascular: regular rate, rhythm, no edema, no gallop, no JVD, no murmur Abdomen: normal bowel sounds, non tender, soft, no organomegaly, no pulsatile mass Extremities: normal range of motion, non-tender, normal inspection, no pedal edema Neurologic/Psychiatric: alert, normal mood/affect, oriented x 3 Skin: normal color, warm/dry, no rash Lymphatic: no adenopathy Laboratory Results Last 24 Hours Test 07/01/17 08:52 07/01/17 09:53 07/01/17 13:47 07/01/17 16:40 Parathyroid Hormone (Intact) 104.4 pg/mL Ionized Calcium 0.88 mmol/l Prealbumin 21.3 mg/dl Sodium Level 142 mmol/L Potassium Level 3.2 mmol/L Chloride Level 107 mmol/L Carbon Dioxide Level 26 mmol/L Anion Gap 9.0 mmol/L Blood Urea Nitrogen 2 mg/dl Creatinine 0.55 mg/dl Est Creatinine Clear Calc Drug Dose 170.3 ml/min Estimated GFR () > 150.0 Estimated GFR (Non- 130.4 BUN/Creatinine Ratio 2.9 Random Glucose 94 mg/dl Calcium Level 7.3 mg/dl Phosphorus Level 3.2 mg/dl Magnesium Level 1.9 mg/dl Immunoglobulin A 224.0 mg/dL Test 07/01/17 22:24 07/02/17 06:38 07/02/17 08:06 Ionized Calcium 0.92 mmol/l White Blood Count 6.42 K/uL Red Blood Count 3.80 M/uL Hemoglobin 12.2 g/dL Hematocrit 33.9 % Mean Corpuscular Volume 89.2 fL Mean Corpuscular Hemoglobin 32.1 pg Mean Corpuscular Hemoglobin Concent 36.0 g/dl Platelet Count 166 K/uL Mean Platelet Volume 8.9 fL Neutrophils (%) (Auto) 54.3 % Lymphocytes (%) (Auto) 37.7 % Monocytes (%) (Auto) 5.0 % Eosinophils (%) (Auto) 2.3 % Basophils (%) (Auto) 0.5 % Neutrophils # (Auto) 3.49 K/uL Lymphocytes # (Auto) 2.42 K/uL Monocytes # (Auto) 0.32 K/uL Eosinophils # (Auto) 0.15 K/uL Basophils # (Auto) 0.03 K/uL RDW Standard Deviation 43.5 fL RDW Coefficient of Variation 13.4 % Immature Granulocyte % (Auto) 0.2 % Immature Granulocyte # (Auto) 0.01 K/uL Sodium Level 144 mmol/L Potassium Level mmol/L Chloride Level 113 mmol/L Carbon Dioxide Level 26 mmol/L Anion Gap 5.0 mmol/L Blood Urea Nitrogen 1 mg/dl Creatinine 0.43 mg/dl Est Creatinine Clear Calc Drug Dose 218.7 ml/min Estimated GFR () > 150.0 Estimated GFR (Non- 141.4 BUN/Creatinine Ratio 3.2 Random Glucose 81 mg/dl Calcium Level 7.2 mg/dl Phosphorus Level 2.3 mg/dl Magnesium Level mg/dl Ferritin 134.6 ng/ml Total Bilirubin 0.9 mg/dl Aspartate Amino Transf (AST/SGOT) U/L Alanine Aminotransferase (ALT/SGPT) 24 U/L Alkaline Phosphatase 98 U/L Total Protein 5.6 gm/dl Albumin 2.6 gm/dl Globulin 3.0 gm/dl Albumin/Globulin Ratio 0.9 Medications Current Inpatient Medications Medications (Trade) Dose Ordered Sig/Dalton Route Start Time Stop Time Status Last Admin Dose Admin Acetaminophen (Tylenol Tab) 650 mg Q4H PRN PO 06/30/17 23:00 07/30/17 22:59 Ondansetron HCl (Zofran Inj) 4 mg Q6H PRN IV 06/30/17 23:00 07/30/17 22:59 Ranitidine HCl 50 mg/Dextrose 102 ml @ 200 mls/hr Q8H IV 07/01/17 01:00 07/31/17 00:59 07/02/17 01:10 200 MLS/HR Thiamine HCl 250 mg/Sodium Chloride 52.5 ml @ 208 mls/hr QAM IV 07/01/17 09:00 07/04/17 08:59 07/01/17 07:46 208 MLS/HR Multivitamins/ Minerals (Multivitamin W/ Minerals Tab) 1 tab QAM PO 07/01/17 09:00 07/31/17 08:59 07/01/17 07:37 1 TAB Lorazepam (Ativan Tab) 1 mg ONE PRN PO 07/01/17 00:00 Diphenhydramine HCl (Benadryl Cap) 25 mg HS PRN PO 07/01/17 01:00 07/31/17 00:59 07/01/17 01:38 25 MG Gabapentin (Neurontin Tab) 600 mg Q8H PO 07/01/17 20:00 07/02/17 12:01 07/02/17 04:18 600 MG Gabapentin (Neurontin Tab) 600 mg Q12H PO 07/03/17 00:00 07/03/17 12:01 Gabapentin (Neurontin Tab) 600 mg Q24H PO 07/04/17 12:00 07/04/17 12:01 Magnesium Oxide (Mag-Ox Tab) 400 mg QAM PO 07/01/17 09:00 07/31/17 08:59 07/01/17 09:12 400 MG Potassium Chloride 40 meq/ Sodium Chloride 1,020 ml @ 100 mls/hr [id number] IV 07/01/17 09:00 07/31/17 08:59 07/02/17 06:03 100 MLS/HR Folic Acid (Folvite Tab) 1 mg QAM PO 07/02/17 09:00 08/01/17 08:59 Cholecalciferol (Vitamin D Tab) 5,000 inter.unit QAM PO 07/02/17 09:00 08/01/17 08:59 Calcium Carbonate (Tums Chew Tab) 1,000 mg BID PO 07/01/17 21:00 07/31/17 20:59 07/01/17 20:53 1,000 MG Mirtazapine (Remeron Tab) 30 mg HS PO 07/01/17 21:00 07/31/17 20:59 07/01/17 23:10 30 MG Assessment and Plan Problems Alcohol use disorder, moderate, dependence Hypokalemia Hypomagnesemia Assessment and Plan: Patient is a pleasant, cooperative 26yo female with no signs of acute distress presenting to the hospital for muscular spasms, nausea, vomiting and abdominal pain due to significant electrolyte imbalances secondary to chronic alcohol abuse Abdominal pain, nausea, vomiting, muscle cramps, poor appetite: Resolved with electrolyte replacement * Ondansetron PRN * Continue daily monitoring electrolyte levels * Transition liquid diet to solids today Hypokalemia: admission 3.1, now 4.0 * Loss likely result of intracellular relocation with vomiting, malabsorption from chronic alcohol use, renal loss due to hypomagnesemia * Resolved with IV and oral replacement. * Continue to trend levels * Continue cardiac monitoring until stable K + MG levels attained Hypomagnesemia: admission 0.9, now 1.7 * Loss likely result of poor dietary intake and chronic alcohol use * Replaced with sulfate - levels reached 1.9, fell to 1.7 today * 1g Mg sulfate * Continue to trend level Hypophosphoremia: admission 1.6, now 2.3 * Level fell from 3.2 * IV and oral replacement * Continue to trend level Substance Abuse * COREEN <0.03 on admission, tremors have resolved * PRN lorazepam for alcohol withdrawal symptoms (agitation, tremors, etc) * Gabapentin regiment for withdrawal management * Plan to follow-up with outpatient rehab concerning use * B3, B6, B12, D + multivitamin to correct chronic depletion secondary to poor dietary intake and alcohol induced malabsorption Depression + Anxiety * Consulted with psychiatry - patient started on mirtazapine DVT prophylaxis * SENDY + SCDs * Lovenox Discharge Plan: Due to chronic alcohol use and suspected severity of abuse, patient is at increased risk for developing delirium tremens in the next 1-2 days. Continue monitoring electrolytes and vital signs for indications of worsening, plan to discharge in 2-3 days Continued [facility] stay due to: multiple IV medications needed Discharge planning: home
[2017-07-02] MEDS ORDERED: CHOLECALCIFEROL 1000 INTER.UNIT TAB PO SCH (09:00)
[2017-07-02] MEDS: MAGNESIUM OXIDE 400 MG TAB PO SCH (09:03)
[2017-07-02] MEDS: CALCIUM CARBONATE 500 MG CHEWABLE PO SCH (09:03)
[2017-07-02] MEDS: CEROVITE ADV FORMULA TAB PO SCH (09:03)
[2017-07-02 09:20] LABS: MAGNESIUM 1.7 mg/dl (1.8-2.4)
[2017-07-02] MEDS: THIAMINE HCL INJ 250 MG in SODIUM CHLORIDE 0.9% 50ML 50 ML IV SCH (10:23)
[2017-07-02] MEDS ORDERED: POTASSIUM PHOS 3 MMOL/1 ML INFUSION IV STA (11:56)
[2017-07-02] MEDS ORDERED: MAGNESIUM SULFATE 1GM / D5W 1 GM in PREMIXED IN D5W 100 ML IV ONE (12:15)
[2017-07-02] MEDS ORDERED: POTASSIUM PHOSPHATE INJ 15 MMOL in SODIUM CHLORIDE 0.9% 250ML 250 ML IV SCH (12:30)
[2017-07-02] MEDS ORDERED: CALCIUM GLUCONATE 10% 1,000 MG in SODIUM CHLORIDE 0.9% 50ML 50 ML IV ONE (15:00)
--- NOTE | 2017-07-02 16:23 | Family Medicine Progress Note ---
Progress Note Date of Service Jul 02, 2017. Subjective Pt evaluation today including: conversation w/ patient, physical exam, chart review, lab review, review of studies Pain: No pain reported this morning Voiding: no voiding problems, no incontinence Patient is resting comfortably in bed with no acute complaints overnight. States she is no longer having tremors or rigidity. Plans on going to rehab at [facility] on . Was able to sleep well with dose of Remeron. Constitutional: No fever, No chills, No sweats, No fatigue Eyes: No worsening of vision, No diplopia ENT: No trouble swallowing Respiratory: No cough, No sputum, No shortness of breath Cardiovascular: No chest pain, No palpitations Abdomen: No pain, No nausea, No vomiting, No diarrhea, No constipation Musculoskeletal: No joint pain, No muscle pain, No calf pain Neurologic: No memory loss, No paralysis, No weakness, No numbness/tingling , No vertigo Psychiatric: No depression symptoms, No substance abuse Skin: No rash Medications Current Inpatient Medications Medications (Trade) Dose Ordered Sig/Dalton Route Start Time Stop Time Status Last Admin Dose Admin Acetaminophen (Tylenol Tab) 650 mg Q4H PRN PO 06/30/17 23:00 07/30/17 22:59 Ondansetron HCl (Zofran Inj) 4 mg Q6H PRN IV 06/30/17 23:00 07/30/17 22:59 Ranitidine HCl 50 mg/Dextrose 102 ml @ 200 mls/hr Q8H IV 07/01/17 01:00 07/31/17 00:59 07/02/17 09:20 200 MLS/HR Thiamine HCl 250 mg/Sodium Chloride 52.5 ml @ 208 mls/hr QAM IV 07/01/17 09:00 07/04/17 08:59 07/02/17 10:23 208 MLS/HR Multivitamins/ Minerals (Multivitamin W/ Minerals Tab) 1 tab QAM PO 07/01/17 09:00 07/31/17 08:59 07/02/17 09:03 1 TAB Lorazepam (Ativan Tab) 1 mg ONE PRN PO 07/01/17 00:00 Diphenhydramine HCl (Benadryl Cap) 25 mg HS PRN PO 07/01/17 01:00 07/31/17 00:59 07/01/17 01:38 25 MG Gabapentin (Neurontin Tab) 600 mg Q12H PO 07/03/17 00:00 07/03/17 12:01 Gabapentin (Neurontin Tab) 600 mg Q24H PO 07/04/17 12:00 07/04/17 12:01 Magnesium Oxide (Mag-Ox Tab) 400 mg QAM PO 07/01/17 09:00 07/31/17 08:59 07/02/17 09:03 400 MG Potassium Chloride 40 meq/ Sodium Chloride 1,020 ml @ 100 mls/hr [id number] IV 07/01/17 09:00 07/31/17 08:59 07/02/17 06:03 100 MLS/HR Folic Acid (Folvite Tab) 1 mg QAM PO 07/02/17 09:00 08/01/17 08:59 07/02/17 10:23 1 MG Cholecalciferol (Vitamin D Tab) 5,000 inter.unit QAM PO 07/02/17 09:00 08/01/17 08:59 07/02/17 09:04 5,000 INTER.UNIT Calcium Carbonate (Tums Chew Tab) 1,000 mg BID PO 07/01/17 21:00 07/31/17 20:59 07/02/17 09:03 1,000 MG Mirtazapine (Remeron Tab) 30 mg HS PO 07/01/17 21:00 07/31/17 20:59 07/01/17 23:10 30 MG Objective Vital Signs Date Time Temp Pulse Resp B/P (MAP) Pulse Ox O2 Delivery O2 Flow Rate FiO2 07/02/17 15:35 36.8 81 16 127/84 (98) 99 Room Air 07/02/17 12:00 Room Air 07/02/17 11:32 36.7 77 16 144/96 (112) 98 Room Air 07/02/17 08:00 Room Air 07/02/17 07:32 36.7 71 16 108/71 (83) 99 Room Air 07/02/17 04:00 99 Room Air 07/02/17 03:45 36.6 75 16 123/84 (97) 98 Room Air 07/02/17 00:00 36.7 86 126/92 (103) 99 Room Air 07/02/17 00:00 99 Room Air 07/01/17 20:00 99 Room Air 07/01/17 19:56 36.9 90 22 137/96 (110) 99 Room Air 07/01/17 16:02 36.9 96 18 133/86 (102) 98 Room Air Physical Exam General Appearance: WD/WN, no apparent distress Eyes: normal inspection, PERRL, EOMI, sclerae normal Neck: supple, no carotid bruits Respiratory/Chest: chest non-tender, lungs clear, normal breath sounds Cardiovascular: regular rate, rhythm, no edema, no gallop Abdomen: normal bowel sounds, non tender, soft Extremities: non-tender, no pedal edema, no calf tenderness 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, no motor/sensory deficits, alert, normal mood/affect, oriented x 3 Skin: normal color Laboratory Results Results Past 24 Hours Test 07/01/17 16:40 07/01/17 22:24 07/02/17 06:38 07/02/17 08:06 Range/Units Sodium Level 142 144 136-145 mmol/L Potassium Level 3.2 3.5-5.1 mmol/L Chloride Level 107 113 98-107 mmol/L Carbon Dioxide Level 26 26 21-32 mmol/L Anion Gap 9.0 5.0 3-11 mmol/L Blood Urea Nitrogen 2 1 7-18 mg/dl Creatinine 0.55 0.43 0.60-1.20 mg/dl Est Creatinine Clear Calc Drug Dose 170.3 218.7 ml/min Estimated GFR () > 150.0 > 150.0 Estimated GFR (Non- 130.4 141.4 BUN/Creatinine Ratio 2.9 3.2 10-20 Random Glucose 94 81 70-99 mg/dl Calcium Level 7.3 7.2 8.5-10.1 mg/dl Phosphorus Level 3.2 2.3 2.5-4.9 mg/dl Magnesium Level 1.9 1.8-2.4 mg/dl Immunoglobulin A 224.0 70-400 mg/dL Ionized Calcium 0.92 1.12-1.32 mmol/l White Blood Count 6.42 4.8-10.8 K/uL Red Blood Count 3.80 4.2-5.4 M/uL Hemoglobin 12.2 12.0-16.0 g/dL Hematocrit 33.9 37-47 % Mean Corpuscular Volume 89.2 80-100 fL Mean Corpuscular Hemoglobin 32.1 25-34 pg Mean Corpuscular Hemoglobin Concent 36.0 32-36 g/dl Platelet Count 166 130-400 K/uL Mean Platelet Volume 8.9 7.4-10.4 fL Neutrophils (%) (Auto) 54.3 % Lymphocytes (%) (Auto) 37.7 % Monocytes (%) (Auto) 5.0 % Eosinophils (%) (Auto) 2.3 % Basophils (%) (Auto) 0.5 % Neutrophils # (Auto) 3.49 1.4-6.5 K/uL Lymphocytes # (Auto) 2.42 1.2-3.4 K/uL Monocytes # (Auto) 0.32 0.11-0.59 K/uL Eosinophils # (Auto) 0.15 0-0.5 K/uL Basophils # (Auto) 0.03 0-0.2 K/uL RDW Standard Deviation 43.5 36.4-46.3 fL RDW Coefficient of Variation 13.4 11.5-14.5 % Immature Granulocyte % (Auto) 0.2 % Immature Granulocyte # (Auto) 0.01 0.00-0.02 K/uL Ferritin 134.6 8.0-388.0 ng/ml Total Bilirubin 0.9 0.2-1 mg/dl Aspartate Amino Transf (AST/SGOT) 15-37 U/L Alanine Aminotransferase (ALT/SGPT) 24 12-78 U/L Alkaline Phosphatase 98 45-117 U/L Total Protein 5.6 6.4-8.2 gm/dl Albumin 2.6 3.4-5.0 gm/dl Globulin 3.0 2.5-4.0 gm/dl Albumin/Globulin Ratio 0.9 0.9-2 Test 07/02/17 08:44 07/02/17 12:30 Range/Units Potassium Level 4.0 3.5-5.1 mmol/L Magnesium Level 1.7 1.8-2.4 mg/dl Aspartate Amino Transf (AST/SGOT) 30 15-37 U/L Ionized Calcium 1.05 1.12-1.32 mmol/l Assessment and Plan 26 yo F Hx alcohol abuse presented to ED for having severe muscle cramps and Nausea/Vomiting, abdominal pain noted to have severe electrolyte disturbance in ED 1) Muscle cramps and paraesthesias in the setting of alcohol abuse and poor dietary intake - Electrolyte abnormalities including K+, Ca+, Phos, and Mag - Vitamin D and folate deficiencies - Replace electrolytes and monitor levels closely - Continue Tele monitoring - Alcohol withdrawal protocol - Ferritin level normal - Prealbumin level normal 2) Hypophosphatemia (2.3) - Phos initially improved with IV and oral replacement - Today decreased to 2.3 - 15mmol K Phos IV - Recheck level in am tomorrow 3) Severe Hypocalcemia with tetany and paresthesia - Improving --> Ionized Ca of 1.05 - Supplement with 1g IV Ca Gluconate - Severe Vitamin D deficiency - 9.9 - 5000 units of Vitamin D qAM - Recheck Calcium level tomorrow morning - Calcium Carb 1g BID - Normal B12 - Secondary hyperparathyroidism 104.4 4) Hypomagnesemia (1.7) - Initially 0.9 on presentation to the ED - 2g Magnesium sulfate supplement - Recheck Mg level tomorrow morning 5) Hypokalemia - secondary to decreased PO intake/vomiting loss - Resolved - Discontinue IV KCL 40 meq /NS - Recheck BMP tomorrow 6) Folic acid deficiency - Folic Acid 1mg qAM 7) GI Distress - Abdominal pain, nausea, vomiting - Poor oral intake over one month period - Clinically resolved - Likely alcohol withdrawal, pancreatitis unlikely given unremarkable lipase, no evidence of constipation - Treat electrolyte abnormalities - R/o celiac ds - transglutaminase IgA. Consider GI evaluation if symptoms persists 8) Alcohol use disorder - Plan for attending [facility] 07/05 - multivitamin, thiamine 250mg IV 3 days - B12 and folate 9) Alcohol withdrawal - Tremors resolved - AWSS gabapentin protocol, lorazepam PRN 10) Anxiety and depression - Psychiatry consulted - Remeron 30mg qHS - Slept well last night 11) VTE Prophylaxis - SCDs and TEDs - Lovenox 40mg once per day 12) Code Status - Full Resuscitation Resident Tracking Resident Involvement: Resident Care Provided Care Provided: Adult Hospital Medicine Reviewed: Pt Seen/Exam by Me History Please see my addendum to discharge summary on the same day
[2017-07-02] MEDS ORDERED: ENOXAPARIN 40 MG/0.4 ML SYR SQ ONE (16:45)
--- NOTE | 2017-07-02 16:51 | Discharge Instructions ---
Discharge Instructions Date of Service Jul 02, 2017. Admission Reason for Admission: Abd Pain, Hypomagnesemia, Tetany, Vomiting Discharge Discharge Diagnosis / Problem: Electrolyte disturbances secondary to alcohol abuse Discharge Goals Goal(s): Improve function, Therapeutic intervention Activity Recommendations Activity Limitations: per Instructions/Follow-up section Lifting Limitations: gradually increase as tolerated . Instructions / Follow-Up Instructions / Follow-Up You were treated in the hospital for muscle cramps and GI complaints associated with electrolyte and nutritional deficiencies caused by alcohol abuse. We corrected your Calcium, Phosphate, Magnesium, Potassium, Vitamin D, and Folate levels. You were also started on Remeron (Mirtazapine) for depression and sleep issues. You will also be going to [facility] on 07/05 for alcoholic rehabilitation and counselling. - Follow up with Dr. Ger Garcia and make an appointment for next Sunday to check your electrolyte levels NEW MEDICATIONS - Calcium Carbonate 1g twice daily to replace your calcium level - Gabapentin 600mg twice daily - 4 more doses total - one dose ton, 2 doses tomorrow, and the last dose Sunday - Remeron 30mg at bedtime for depression and sleep issues - Thiamine 25mg by mouth every morning for Thiamine (vitamin) deficiency - Magnesium Oxide 400mg by mouth every morning for Magnesium deficiency - Vitamin D 500 units every morning for Calcium and Vitamin D deficiency - Folic Acid 1gm by mouth every morning for folic acid deficiency Current Hospital Diet Patient's current hospital diet: Regular Diet Discharge Diet Recommended Diet: Regular Diet Pending Studies Studies pending at discharge: no Medical Emergencies . Who to Call and When: Medical Emergencies: If at any time you feel your situation is an emergency, please call 911 immediately. . Non-Emergent Contact Non-Emergency issues call your: Primary Care Provider . . "Provider Documentation" section prepared by Ger Garcia. . VTE Core Measure Inpt VTE Proph given/why not?: T.E.D. Stockings, SCD's, Treatment not indicated
[2017-07-02] MEDS ORDERED: TUMS PO (16:58)
[2017-07-02] MEDS ORDERED: FLV1 PO (16:58)
[2017-07-02] MEDS ORDERED: RMR15 PO (16:58)
[2017-07-02] MEDS ORDERED: NRN600 PO (16:58)
[2017-07-02] MEDS ORDERED: THM50 PO (16:58)
[2017-07-02] MEDS ORDERED: VTMD1000 PO (16:58)
[2017-07-02 17:43] LABS: CALCIUM 8.3 mg/dl (8.5-10.1); CREATININE 0.64 mg/dl (0.60-1.20); MAGNESIUM 1.8 mg/dl (1.8-2.4); PHOSPHORUS 2.8 mg/dl (2.5-4.9); POTASSIUM 4.7 mmol/L (3.5-5.1)
--- NOTE | 2017-07-02 22:57 | Discharge Summary ---
Discharge Summary Date of Service Jul 02, 2017. Discharge Summary Admission Date: Jun 30, 2017 at 22:56 Discharge Date: Jul 02, 2017 Discharge Disposition: Home Principal Diagnosis: Electrolyte Disturbances Immunizations: Have You Had Influenza Vaccine: Unknown History of Tetanus Vaccine?: Yes History of Pneumococcal: No History of Hepatitis B Vaccine: Yes Medication Reconciliation New Medications: Calcium Carbonate (Tums) 500 Mg Chew 1000 MG PO BID for 10 Days, #40 TABS Cholecalciferol (Vitamin D3) 1,000 Inter.unit Tab 5000 INTER.UNIT PO QAM for 10 Days, #10 TAB Folic Acid (Folic Acid) 1 Mg Tab 1 MG PO QAM for 10 Days, #10 TAB Gabapentin (Gabapentin) 600 Mg Tab 600 MG PO BID for 2 Days, #4 TAB Mirtazapine (Mirtazapine) 15 Mg Tab 30 MG PO HS for 30 Days, #30 TAB Thiamine HCl (Vitamin B-1) 50 Mg Tab 25 MG PO QAM for 10 Days, #10 TAB Referrals At Discharge Follow up Referrals: Family Practice Referral - 07/10/17 with Ger Garcia MD Discharge Exam Review of Systems: Constitutional: No fever, No chills, No sweats, No fatigue Respiratory: No cough, No sputum, No shortness of breath Cardiovascular: No chest pain, No palpitations Abdomen: No pain, No nausea, No vomiting, No diarrhea, No constipation Musculoskeletal: No joint pain, No muscle pain Genitourinary - Female: No dysuria Neurologic: No memory loss, No weakness, No numbness/tingling, No vertigo Psychiatric: No depression symptoms Endocrine: No fatigue Physical Exam: General Appearance: WD/WN, no apparent distress Respiratory/Chest: chest non-tender, lungs clear, normal breath sounds Cardiovascular: regular rate, rhythm, no edema, no gallop Abdomen / GI: normal bowel sounds, non tender, soft Extremities: no calf tenderness, no pedal edema 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 Garcia on 07/10 - Vitamin D and folate deficiencies --> Continue replacement on discharge - Alcohol withdrawal protocol --> Continue Gabapentin BID dosing for 2 more days on dishcarge - Ferritin level normal - Prealbumin level normal 2) Hypophosphatemia (2.8) --> Within normal limits of discharge after supplementation - Phos initially improved with IV and oral replacement - Today decreased to 2.3 - 15mmol K Phos IV 3) Severe Hypocalcemia with tetany and paresthesia - Calcium improved to 8.3 on discharge - Improving --> Ionized Ca of 1.05 - Supplement with 1g IV Ca Gluconate - Severe Vitamin D deficiency - 9.9 - 5000 units of Vitamin D qAM - Calcium Carb 1g BID - Normal B12 - Secondary hyperparathyroidism 104.4 4) Hypomagnesemia (1.8) --> Within normal limits on discharge - Initially 0.9 on presentation to the ED - 2g Magnesium sulfate supplement 5) Hypokalemia - secondary to decreased PO intake/vomiting loss - Resolved - Discontinue IV KCL 40 meq /NS 6) Folic acid deficiency - Folic Acid 1mg qAM 7) GI Distress - Abdominal pain, nausea, vomiting - Poor oral intake over one month period - Clinically resolved - Likely alcohol withdrawal, pancreatitis unlikely given unremarkable lipase, no evidence of constipation - Treat electrolyte abnormalities - R/o celiac diseass - transglutaminase IgA 8) Alcohol use disorder - Plan for attending [facility] 07/05 - Continue thiamine supplementation 25mg daily PO on discharge - B12 and folate 9) Alcohol withdrawal - Tremors resolved - AWSS gabapentin protocol, lorazepam PRN 10) Anxiety and depression - Psychiatry consulted - Remeron 30mg qHS - Slept well last night 11) VTE Prophylaxis - SCDs and TEDs 12) Code Status - Full Resuscitation Total Time Spent: Greater than 30 minutes This includes examination of the patient, discharge planning, medication reconciliation, and communication with other providers. Discharge Instructions Please refer to the electronic Patient Visit Report (Discharge Instructions) for additional information. Additional Copies To Ger Garcia MD
[2017-07-03] MEDS ORDERED: GABAPENTIN 600MG Q12H DOSE PO SCH
[2017-07-03] MEDS ORDERED: THIAMINE HCL 50 MG TAB PO SCH ×2 (09:00)
[2017-07-03] MEDS ORDERED: ENOXAPARIN 40 MG/0.4 ML SYR SQ SCH (12:00)
[2017-07-04] MEDS ORDERED: GABAPENTIN 600MG Q24H DOSE PO SCH (12:00)
== END 2017-07-02 19:15 | disposition home or self-care (01) | DRG 641 ==
LOC: EDBD 20:20 → C.EDB 20:21 → C.2T 22:56 → ENRESERV 23:20
PROVIDERS: ADMIT Hospitalist; ATTEND Family Medicine
DX: E83.51 Hypocalcemia (principal); E46 Unspecified protein-calorie malnutrition; F10.239 Alcohol dependence with withdrawal, unspecified; E83.30 Disorder of phosphorus metabolism, unspecified; E87.6 Hypokalemia; E83.42 Hypomagnesemia; E53.8 Deficiency of other specified B group vitamins; E86.0 Dehydration; R11.2 Nausea with vomiting, unspecified; R10.9 Unspecified abdominal pain; F41.1 Generalized anxiety disorder; F32.9 Major depressive disorder, single episode, unspecified; F51.05 Insomnia due to other mental disorder; Z68.32 Body mass index [BMI] 32.0-32.9, adult; Z62.810 Personal history of physical and sexual abuse in childhood; Z62.811 Personal history of psychological abuse in childhood; Z81.8 Family history of other mental and behavioral disorders